=== PATIENT | male | born 1965 | race Caucasian/White ===

== ENCOUNTER 2019-04-25 13:59 | Emergency (ER) | payer OTHER ==
[~2019-04-25] VITALS: Ht 175.3 cm; Wt 88.5 kg
[~2019-04-25 13:59] MED LIST: ALLEGRA180 MG PO; ASPIRIN EC325 MG PO; FISH OIL 1,0001 EAC4 PO; FLEXERIL10 MG PO; FUROSEMIDE20 MG PO; GABAPENTIN300 MG PO; GABAPENTIN600 MG PO; ISOSORBIDE MONO30 MG PO; LANTUS100 UNIT/1 SUB-Q; LIPITOR80 MG PO; LISINOPRIL10 MG PO; MULTIVITAMINS1 EAC7 PO; NOVOLOG FL100 UNIT/1 SQ; OMEPRAZOLE20 MG PO; OSTERA TABLET1 EACH PO; POTASSIUM CHLO10 MEQ PO; TRAMADOL HCL50 MG PO; VITAMIN E100 UNIT PO
--- OUTSIDE RECORDS SUMMARY | 2019-04-25 14:02 | XMS ---
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 Ani VISIT COUNT (12 MO.) Annette Umaña TOTAL 1 NOTE: Visits indicate total known visits. ED/UCC VISIT TRACKING (12 MO.) 04/25/2019 13:[address] [facility] TYPE: Emergency COMPLAINT: - ABDOMINAL PAIN INPATIENT VISIT TRACKING (12 MO.) 04/03/2019 08:11 [facility] Kervin FELTON TYPE: Surgery DIAGNOSES: - Oth symptoms and signs involving the musculoskeletal system - Other intervertebral disc displacement, lumbar region - Disease of spinal cord, unspecified - Other symptoms and signs involving the nervous system [facility] DIAGNOSES: - Abnormal reflex - Other cervical disc degeneration, unsp cervical region - Disease of spinal cord, unspecified - Spinal stenosis, cervical region - Other symptoms and signs involving the nervous system - Paresthesia of skin - Radiculopathy, cervical region - Anesthesia of skin - Oth symptoms and signs involving the musculoskeletal system [email or web address]
[2019-04-25] MEDS ORDERED: PROMETHAZINE HC25 M1 PO (18:19)
== END 2019-04-25 18:44 | disposition home or self-care (01) ==
LOC: ED 13:59
DX: R10.12 Left upper quadrant pain (principal); I25.2 Old myocardial infarction; E11.9 Type 2 diabetes mellitus without complications; F17.200 Nicotine dependence, unspecified, uncomplicated; Z88.0 Allergy status to penicillin; Z79.899 Other long term (current) drug therapy
CPT/HCPCS: 36415; 74174; 80053; 81001; 83690; 85025; 96361; 99284-25; J1170; J2405; J2550; J7040; Q9967

== ENCOUNTER 2019-06-25 09:32 | Emergency (ER) | payer OTHER ==
[~2019-06-25] VITALS: Ht 175.3 cm; Wt 88.5 kg
[~2019-06-25 09:32] MED LIST changes: +PROMETHAZINE HC25 M1 PO
--- OUTSIDE RECORDS SUMMARY | 2019-06-25 09:34 | XMS ---
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 Care History Medical/Surgical 04/29/2019 [facility] Care Recommendation: - USE EXTREME CAUTION IN GIVING NARCOTICS TO THIS PATIENT. - Avoid Discharge Narcotic prescriptions if at all possible. Physician discretion. Ani VISIT COUNT (12 MO.) 2 SEAN Umaña TOTAL 2 NOTE: Visits indicate total known visits. ED/UCC VISIT TRACKING (12 MO.) 06/25/2019 09:32 [facility] TYPE: Emergency COMPLAINT: - ABDOMINAL PAIN 04/25/2019 13:59 SE[facility] Fernandez TYPE: Emergency COMPLAINT: - ABDOMINAL PAIN DIAGNOSES: - Left upper quadrant pain - Allergy status to penicillin - Other intermediate (current) drug therapy - Old myocardial infarction - Nicotine dependence, unspecified, uncomplicated - Unspecified abdominal pain - Type 2 diabetes mellitus without complications INPATIENT VISIT TRACKING (12 MO.) 04/03/2019 08:11 [facility] TYPE: Surgery DIAGNOSES: - Other symptoms and signs involving the musculoskeletal system - Other intervertebral disc displacement, lumbar region - Disease of spinal cord, unspecified - Other symptoms and signs involving the nervous system 07/12/2018 08:39 [facility] TYPE: Recovery DIAGNOSES: - Abnormal reflex - Other cervical disc degeneration, unspecified cervical region - Disease of spinal cord, unspecified - Spinal stenosis, cervical region - Other symptoms and signs involving the nervous system - Paresthesia of skin - Radiculopathy, cervical region - Anesthesia of skin - Other symptoms and signs involving the musculoskeletal system [email or web address]
--- NOTE | 2019-06-25 13:57 | EKG ---
[facility] [address] [place], [place] [address] Signed Normal sinus rhythm Normal ECG Confirmed by GIANA ARIZMENDI MD ([id number]) on 06/25/2019 1:57:52 PM Electronically Signed By: GIANA ARIZMENDI MD 06/25/19 1357 PATIENT NAME: YOU JOYCE Electrocardiogram DATE OF : 61 PHYSICIAN: GIANA ARIZMENDI MD REPORT #: [id number] REPORT IS CONFIDENTIAL AND NOT TO BE RELEASED WITHOUT AUTHORIZATION
[2019-06-25] MEDS ORDERED: PROMETHAZINE HC25 M1 PO (13:58)
== END 2019-06-25 15:01 | disposition home or self-care (01) ==
LOC: ED 09:32
DX: R07.89 Other chest pain (principal); R10.9 Unspecified abdominal pain; I25.2 Old myocardial infarction; E11.9 Type 2 diabetes mellitus without complications; F17.200 Nicotine dependence, unspecified, uncomplicated; Z88.0 Allergy status to penicillin; Z79.899 Other long term (current) drug therapy
CPT/HCPCS: 71045; 80053; 83690; 84484; 85025; 93005; 93010; 96361; 96374; 96375; 99285-25; 99406; J1885; J2270; J2405; J2550; J2765; J7030

== ENCOUNTER 2019-08-21 10:42 | Emergency (ER) | payer OTHER ==
[~2019-08-21] VITALS: Ht 175.3 cm; Wt 88.5 kg
--- OUTSIDE RECORDS SUMMARY | 2019-08-21 10:44 | XMS ---
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 Care History Medical/Surgical 06/26/2019 [facility] - [facility], \T\middot;\T\nbsp; PLEASE REFER PATIENT TO [facility] FOR NON EMERGENT MEDICAL NEEDS. \T\middot;\T\nbsp; [facility] CAN SEE PATIENTS SAME DAY FOR APTS IF PATIENT CALLS FIRST THING IN THE MORNING. 04/29/2019 [facility] Care Recommendation: - USE EXTREME CAUTION IN GIVING NARCOTICS TO THIS PATIENT. - Avoid Discharge Narcotic prescriptions if at all possible. Physician discretion. E.D. VISIT COUNT ([address] 3 [facility]. TOTAL 3 NOTE: Visits indicate total known visits. ED/UCC VISIT TRACKING (12 MO.) 08/21/2019 10:42 [facility] TYPE: Emergency COMPLAINT: - ABD PAIN 06/25/2019 09:32 [facility] TYPE: Emergency COMPLAINT: - ABDOMINAL PAIN DIAGNOSES: - Unspecified abdominal pain - Allergy status to penicillin - Other roasterman (current) drug therapy - Other chest pain - Type 2 diabetes mellitus without complications - Chest pain, unspecified - Nicotine dependence, unspecified, uncomplicated - Old myocardial infarction 04/25/2019 13:59 [facility] TYPE: Emergency COMPLAINT: - ABDOMINAL PAIN DIAGNOSES: - Left upper quadrant pain - Allergy status to penicillin - Other roasterman (current) drug therapy - Old myocardial infarction - Nicotine dependence, unspecified, uncomplicated - Unspecified abdominal pain - Type 2 diabetes mellitus without complications INPATIENT VISIT TRACKING (12 MO.) 04/03/2019 08:11 [facility] Kervin [place] TYPE: Surgery DIAGNOSES: - Other symptoms and signs involving the musculoskeletal system - Other intervertebral disc displacement, lumbar region - Disease of spinal cord, unspecified - Other symptoms and signs involving the nervous system [email or web address]
[2019-08-21] MEDS ORDERED: PROTONIX40 MG PO (15:10)
[2019-08-21] MEDS ORDERED: REGLAN10 MG PO (15:10)
--- NOTE | 2019-08-22 17:51 | EKG ---
[facility] [address] [place], [place] [address] Signed Normal sinus rhythm Inferior infarct , age undetermined Abnormal ECG When compared with ECG of 25-JUN-2019 09:34, Inferior infarct is now present Confirmed by MALLORY PONCE DO ([id number]) on 08/22/2019 5:51:06 PM Electronically Signed By: MALLORY PONCE DO 08/22/19 175 PATIENT NAME: YOU JOYCE LUPE Electrocardiogram DATE OF : 61 PHYSICIAN: MALLORY PONCE DO REPORT #: [id number] REPORT IS CONFIDENTIAL AND NOT TO BE RELEASED WITHOUT AUTHORIZATION
== END 2019-08-21 15:26 | disposition home or self-care (01) ==
LOC: ED 10:42
DX: R10.10 Upper abdominal pain, unspecified (principal); I25.2 Old myocardial infarction; E11.9 Type 2 diabetes mellitus without complications; F17.200 Nicotine dependence, unspecified, uncomplicated; Z88.8 Allergy status to other drugs, medicaments and biological substances; Z88.0 Allergy status to penicillin; Z79.899 Other long term (current) drug therapy; Z79.82 Long term (current) use of aspirin; Z79.4 Long term (current) use of insulin
CPT/HCPCS: 74022; 80053; 81001; 83690; 85025; 93005; 93010; 99284-25

== ENCOUNTER 2021-04-21 11:11 | Emergency (ER) | payer OTHER ==
[~2021-04-21] VITALS: Ht 175.3 cm; Wt 90.3 kg
[~2021-04-21 11:11] MED LIST changes: +PROTONIX40 MG PO; +REGLAN10 MG PO
--- OUTSIDE RECORDS SUMMARY | 2021-04-21 11:20 | XMS ---
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 Care History Medical/Surgical 06/26/2019 [facility] - PATIENT IS A [place] ELIGIBLE, \T\middot;\T\nbsp; PLEASE REFER PATIENT TO [facility] FOR NON EMERGENT MEDICAL NEEDS. \T\middot;\T\nbsp; [facility] CAN SEE PATIENTS SAME DAY FOR APTS IF PATIENT CALLS FIRST THING IN THE MORNING. 04/29/2019 [facility] Care Recommendation: - USE EXTREME CAUTION IN GIVING NARCOTICS TO THIS PATIENT. - Avoid Discharge Narcotic prescriptions if at all possible. Physician discretion. E.D. VISIT COUNT (12 MO.) 1 [facility]. TOTAL 1 NOTE: Visits indicate total known visits. ED/UCC VISIT TRACKING (12 MO.) 04/21/2021 11:12 [facility] [place] TYPE: Emergency COMPLAINT: - NECK PAIN, HEADACHE INPATIENT VISIT TRACKING (12 MO.) No inpatient visits to display in this time frame [email or web address]
[2021-04-21] MEDS ORDERED: ADULT ASPIRIN R81 MG PO (11:40)
[2021-04-21] MEDS ORDERED: HYDROCODON-ACE1 EA11 PO (14:59)
[2021-04-21] MEDS ORDERED: METHYLPREDNISOLO4 M1 PO (14:59)
== END 2021-04-21 16:32 | disposition home or self-care (01) ==
LOC: ED 11:11
DX: M50.30 Other cervical disc degeneration, unspecified cervical region (principal); I25.2 Old myocardial infarction; E11.9 Type 2 diabetes mellitus without complications; F17.200 Nicotine dependence, unspecified, uncomplicated; Z88.0 Allergy status to penicillin; Z88.8 Allergy status to other drugs, medicaments and biological substances; Z79.899 Other long term (current) drug therapy; Z79.82 Long term (current) use of aspirin
CPT/HCPCS: 36415; 72141; 80048; 85025; 96374; 96375; 99284-25; A9270; J1170; J2060; J8540